=== PATIENT | female | born 1980 | race African-American/Black ===

== ENCOUNTER 2018-11-05 08:30 | Outpatient (CLI) | payer OTHER ==
[~2018-11-05] VITALS: Ht 167.6 cm; Wt 135.2 kg
[2018-11-05] VITALS (12 sets, daily range): BP systolic 130–150; BP diastolic 63–90
[2018-11-05] MEDS ORDERED: FERR325T14 PO (08:45)
[2018-11-05] MEDS ORDERED: METF500T16 PO (08:45)
[2018-11-05 09:10] LABS: BASO % 0 % (0-3); EOS # 0.1 x10^3/uL (0.0-0.7); EOS % 2 % (0-3); HEMATOCRIT 40.9 % (36.0-47.0); HEMOGLOBIN 13.4 g/dL (12.0-15.5); LYMPH # 1.2 x10^3/uL (1.0-4.8); LYMPH % 24 % (24-48); MEAN CORPUSCULAR HEMOGLOBIN 28 pg (25-35); MEAN CORPUSCULAR HGB CONC 33 g/dL (31-37); MEAN CORPUSCULAR VOLUME 84 fL (79-100); MONO # 0.5 x10^3/uL (0.0-1.1); MONO % 11 % (0-9); NEUT % 63 % (31-73); PLATELET COUNT 202 x10^3/uL (140-400); RED BLOOD COUNT 4.88 x10^6/uL (3.50-5.40); RED CELL DISTRIBUTION WIDTH 15.4 % (11.5-14.5); WHITE BLOOD COUNT 4.8 x10^3/uL (4.0-11.0)
[2018-11-05] MEDS ORDERED: fentaNYL PF VIAL 100 MCG/2 ML VIAL ONE (09:30)
[2018-11-05] MEDS ORDERED: MIDAZOLAM HCL/PF 2 MG/2 ML VIAL. ONE (09:30)
[2018-11-05] MEDS ORDERED: LIDOCAINE WITH 8.4% SOD BICARB 3 ML DISP.SYRIN. ONE (09:32)
[2018-11-05] MEDS ORDERED: LIDOCAINE WITH 8.4% SOD BICARB 3 ML DISP.SYRIN. IJ ONE (10:00)
[2018-11-05] MEDS ORDERED: MIDAZOLAM HCL/PF 2 MG/2 ML VIAL. IV ONE (10:00)
[2018-11-05] MEDS ORDERED: fentaNYL PF VIAL 100 MCG/2 ML VIAL IV ONE (10:00)
--- NOTE | 2018-11-05 11:21 | NUR ---
Discharge Note: YAHIR WEN Discharge instructions and discharge home medications reviewed with Patient and a copy given. All questions have been answered and understanding verbalized. The following instructions and handouts were given: education was given to patient regarding bone biopsy, site care, and moderate sedation. Pt was also instructed to continue home medications as directed. Pt verbalized understanding. Discontinued lines and drains: peripheral iv was discontinued with no complications. Catheter tip was intact. Patient discharged to home with self care via wheelchair. Pt was accompanied by mother.
--- NOTE | 2018-11-06 08:02 | RAD ---
CT-guided biopsy, lytic lesion, left ilium 11/05/2018 Indication: 38-year-old female with history of cervical cancer multiple lytic lesions in small pulmonary nodules. Findings raise concern for metastatic disease. Discussion: The risks and benefits of the procedure, including but not limited to, bleeding and infection were discussed patient. Informed consent was obtained. The patient was brought to the CT scanner and placed in the prone position. A timeout procedure was performed. Sound Recording Technician CT imaging of the pelvis redemonstrated with lytic lesions, largest in the right ilium which was most amenable to CT-guided biopsy. The overlying soft tissues were prepped and draped using maximum sterile barrier technique. 1% lidocaine without epinephrine was administered for local anesthesia. Under intermittent CT guidance, an OncControl needle was advanced to the periphery of the lesion in the right ilium. Core biopsy samples were obtained and placed in formalin. The needle was removed and manual pressure held to achieve hemostasis. No immediate complications were identified. The procedure was performed under conscious sedation including continuous cardiopulmonary monitoring via dedicated sedation nurse. Sedation time: 30 minutes Impression: CT-guided biopsy, lytic lesion, right ilium. PQRS Compliance Statement: One or more of the following individualized dose reduction techniques were utilized for this examination: 1. Automated exposure control 2. Adjustment of the mA and/or kV according to patient size 3. Use of iterative reconstruction technique
--- NOTE | 2018-11-08 10:08 | PATHOLOGY ---
[facility] Accession Number: [id number] . 01 Material submitted: . RIGHT ILIUM BONE BIOPSY . 01 Clinical history: . Cervical cancer . 02 Diagnosis: Segments of bone and fibrocartilaginous tissue, right ilium bone biopsy: - Negative for malignancy. MBR/11/07/2018 . 02 Comment: Sections of the right ilium bone biopsy reveal segments of bone, fibrocartilaginous tissue, and blood clot. There are crush artifactual changes. The best preserved area of the marrow space reveals hematopoietic marrow showing trilineage hematopoiesis. There is no evidence of metastatic carcinoma. . (JPM:dorr operator; 11/06/2018) . 02 Electronically signed: . Dakota Kruger MD, Pathologist NPI- [id number] . 01 Gross description: . Received in formalin labeled "Elaine Melisa, right ilium bone BX," are 2 distinct needle cores of duckworth bone measuring 0.4 and 1.0 cm in length and 0.2 cm each in diameter. The specimen is submitted entirely in cassette A1, following decalcification. (TSD; 11/05/2018) TOB/TOB . 02 Pathologist provided ICD-10: M89.8X8 . 02 CPT . 207491, [id number] Specimen Comment: A courtesy copy of this report has been sent to Specimen Comment: [phone], , , . Specimen Comment: Report sent to ,DR GARZA,DR GARCIA / DR MCGEE Specimen Comment: A duplicate report has been generated due to demographic updates. Performed at: [address] [place] [address] [address], [place], [place] [id number] MD Dre Bey MD Phone: [phone] Performed at: [address] [id number] MD Dakota Kruger MD Phone: [phone]
== END 2018-11-05 11:30 | disposition home or self-care (01) ==
LOC: INTRAD 08:30
PROVIDERS: ATTEND Internal Medicine Hematology & Oncology
DX: M89.8X8 Other specified disorders of bone, other site (principal); E11.9 Type 2 diabetes mellitus without complications; Z79.84 Long term (current) use of oral hypoglycemic drugs; Z79.01 Long term (current) use of anticoagulants; Z85.41 Personal history of malignant neoplasm of cervix uteri
CPT/HCPCS: 20225; 36415; 77012; 85025; 85610; 85730; 99152; 99153; J2250; J3010; 88307; 88311

== ENCOUNTER → 2018-11-08 | Outpatient (CLI) | payer OTHER ==
[2018-11-05 11:20] VITALS: BP 141/63
[~2018-11-08] MED LIST: FERR325T14 PO; METF500T16 PO
--- NOTE | 2018-11-08 09:01 | RAD ---
US SOFT TISSUE HEAD AND NECK CLINICAL INDICATION: Malignant bony lesions. PROCEDURE: Transverse and longitudinal grayscale and color Doppler images of the thyroid were obtained. COMPARISON: None FINDINGS: Right: The right thyroid lobe measures 6.2 x 2.0 x 1.7 cm. There is a 0.6 x 0.4 x0.7 cm oval-shaped hypoechoic nodule in the superior aspect of the thyroid lobe. Other oval-shaped hypoechoic solid nodule measuring 0.3 x 0.3 x 0.2 cm in the mid thyroid gland. Isthmus: 6 mm and is mildly thickened. Left: The left thyroid lobe measures 5.0 x 2.0 x 1.3 cm. There is an oval-shaped hypoechoic solid nodule measuring 0.5 x 0.3 x 0.5 cm in the mid thyroid. Another 0.6 x 0.5 x 0.4 cm anechoic lesion in the posterior mid thyroid likely colloid cyst. IMPRESSION: Bilateral thyroid nodules as described above. These are moderately suspicious. According to ACR recommendation for a moderately suspicious lesion FNA if >=1.5 cm and follow if >=1 cm. Electronically signed by: Cory Stanley DO (11/08/2018 8:58 AM) [facility]
--- NOTE | 2018-11-08 10:19 | RAD ---
DATE: 11/08/2018 EXAM: MAMMO CELESTINA SCREENING BILATERAL HISTORY: Routine screening. COMPARISON: Previous mammogram from 2018 and 2017. This study was interpreted with the benefit of Computerized Aided Detection (CAD). FINDINGS: Breast Density: SCATTERED The breast parenchyma shows scattered fibroglandular densities. Breast parenchyma level B. The skin and nipples are within normal limits. No suspicious calcifications, spiculated mass or area of architectural distortion. IMPRESSION: No mammographic evidence of malignancy. Stable mammogram. BI-RADS CATEGORY: 2 BENIGN FINDING(S) RECOMMENDED FOLLOW-UP: 12M 12 MONTH FOLLOW-UP PQRS compliance statement: Patient information was entered into a reminder system with a target due date for the next mammogram. Mammography is a sensitive method for finding small breast cancers, but it does not detect them all and is not a substitute for careful clinical examination. A negative mammogram does not negate a clinically suspicious finding and should not result in delay in biopsying a clinically suspicious abnormality. "Our facility is accredited by the [employer] Mammography Program."
== END | disposition home or self-care (01) ==
LOC: EDUNIT# 07:15 → US 07:39
PROVIDERS: ATTEND Internal Medicine Hematology & Oncology
DX: Z12.31 Encounter for screening mammogram for malignant neoplasm of breast (principal); C53.9 Malignant neoplasm of cervix uteri, unspecified; M89.9 Disorder of bone, unspecified; E04.2 Nontoxic multinodular goiter
CPT/HCPCS: 76536; 77063; 77067

== ENCOUNTER 2019-03-28 06:51 | Outpatient (CLI) | payer OTHER ==
[2019-03-28] VITALS (11 sets, daily range): BP systolic 105–132; BP diastolic 62–99
[~2019-03-28] VITALS: Ht 168.9 cm; Wt 131.5 kg
[2019-03-28] MEDS ORDERED: GABA300C18 PO (07:37)
[2019-03-28] MEDS ORDERED: DIPH1TAB PO (07:37)
[2019-03-28] MEDS ORDERED: OXYC1TAB15 PO (07:37)
[2019-03-28] MEDS ORDERED: ONDA8TAB9 PO (07:37)
[2019-03-28 07:47] LABS: BASO % 1 % (0-3); EOS # 0.1 x10^3/uL (0.0-0.7); EOS % 3 % (0-3); HEMOGLOBIN 11.8 g/dL (12.0-15.5); LYMPH # 1.3 x10^3/uL (1.0-4.8); LYMPH % 29 % (24-48); MEAN CORPUSCULAR HEMOGLOBIN 27 pg (25-35); MEAN CORPUSCULAR HGB CONC 33 g/dL (31-37); MEAN CORPUSCULAR VOLUME 82 fL (79-100); MONO # 0.7 x10^3/uL (0.0-1.1); MONO % 14 % (0-9); NEUT # 2.5 x10^3/uL (1.8-7.7); NEUT % 53 % (31-73); PLATELET COUNT 205 x10^3/uL (140-400); WHITE BLOOD COUNT 4.6 x10^3/uL (4.0-11.0)
[2019-03-28] MEDS ORDERED: LIDOCAINE WITH 8.4% SOD BICARB 3 ML DISP.SYRIN. ONE (08:07)
[2019-03-28] MEDS ORDERED: MIDAZOLAM HCL/PF 2 MG/2 ML VIAL. ONE (08:10)
[2019-03-28] MEDS ORDERED: fentaNYL PF VIAL 250 MCG/5 ML VIAL ONE (08:10)
[2019-03-28] MEDS ORDERED: MIDAZOLAM HCL/PF 2 MG/2 ML VIAL. IV ONE (08:30)
[2019-03-28] MEDS ORDERED: LIDOCAINE WITH 8.4% SOD BICARB 3 ML DISP.SYRIN. IJ ONE (08:30)
[2019-03-28] MEDS ORDERED: fentaNYL PF VIAL 250 MCG/5 ML VIAL IV ONE (08:30)
--- NOTE | 2019-03-28 10:22 | NUR ---
Discharge Note: ZIYAD WEN Discharge instructions and discharge home medications reviewed with Patient and a copy given. All questions have been answered and understanding verbalized. The following instructions and handouts were given: Bone marrrow biopsy and post moderate sedation. Discontinued lines and drains: right hand iv dc'd, tip intact. Patient discharged to home with mother via car.
--- NOTE | 2019-03-28 12:25 | RAD ---
CT-guided bone marrow biopsy. 03/28/2019 12:15 PM Indication: Langerhans cell histiocytosis Discussion: The risks and benefits of the procedure, including but not limited to, bleeding and infection were discussed patient. Informed consent was obtained. The patient was brought to the CT scanner and placed in the prone position. A timeout procedure was performed. Senior Accountant Cpa CT imaging of the pelvis demonstrated left ilium amenable to bone marrow biopsy. The overlying soft tissues were prepped and draped using maximum sterile barrier technique. 1% lidocaine without epinephrine was administered for local anesthesia. Under intermittent CT guidance, an OncControl needle was advanced into the bone marrow of the left iliac crest. 2 Aspirates and 1 core biopsy samples were obtained. Samples were delivered to pathology was present at the time of procedure. The needle was removed and manual pressure held to achieve hemostasis. No immediate complications were identified. The procedure was performed under conscious sedation including continuous cardiopulmonary monitoring via dedicated sedation nurse. Sedation time: 20 minutes Impression: Successful CT-guided bone marrow biopsy of the left iliac crest . PQRS Compliance Statement: One or more of the following individualized dose reduction techniques were utilized for this examination: 1. Automated exposure control 2. Adjustment of the mA and/or kV according to patient size 3. Use of iterative reconstruction technique
== END 2019-03-28 10:20 | disposition home or self-care (01) ==
LOC: INTRAD 06:51
PROVIDERS: ATTEND Internal Medicine Hematology & Oncology
DX: C96.6 Unifocal Langerhans-cell histiocytosis (principal)
CPT/HCPCS: 36415; 38222; 77012; 85025; 85610; 88184; 88185; 88237; J2250; J3010; 99152